=== PATIENT | female | born 1970 | race Caucasian/White ===

== ENCOUNTER 2022-08-26 09:02 | Inpatient (IN) | payer OTHER, MEDICAID ==
[~2022-08-26 09:02] MED LIST: Bupivacaine 0.5% 50 ML MDV ONE; Dexamethasone 4 MG/ML SDV ONE; Dextrose 5%-Lactated Ringers 1,000 ML IV SCH; Glycopyrrolate 0.2 MG/ML 5 ML MDV ONE; Lidocaine 1% with EPINEPHrine 1:100,000 50 ML MDV ONE; Meropenem 500 MG SDV ONE; Naloxone 0.4 MG/ML SDV IV PRN; Neostigmine Methylsulfate 1 MG/ML 5 ML Syringe ONE; Ondansetron 4 MG/2 ML SDV ONE; Propofol 200 MG/20 ML SDV ONE; Rocuronium 50 MG/5 ML Vial ONE; Scopolamine 1.5 MG Transdermal Patch TRDERM SCH; Succinylcholine 200 MG/10 ML MDV ONE; fentaNYL 250 MCG/5 ML SDV ONE
[2022-08-26] MEDS ORDERED: Ketamine 500 MG/5 ML MDV IV SCH (09:15)
[2022-08-26] MEDS ORDERED: Ketamine 18 MG in Sodium Chloride 0.9% 19.82 ML IV SCH (09:15)
[2022-08-26] MEDS ORDERED: Ropivacaine 34 ML, dexAMETHasone 8 MG, EPINEPHrine 0.4 MG, Sodium Chloride 0.9% 43.6 ML NERVRT SCH ×4 (09:15)
[2022-08-26] MEDS ORDERED: Amphetamine/Dextroamphetamine Salts 10 MG Tab PO ONE (09:30)
[2022-08-26 09:31] LABS: HEMATOCRIT 41.5 % (34.3-46.0); HEMOGLOBIN 13.7 g/dL (11.2-15.5); MEAN CORPUSCULAR VOLUME 93.9 fL (81.4-99.0); RED BLOOD CELL COUNT 4.42 M/uL (3.77-5.24); WHITE BLOOD CELL COUNT,WBC 6.3 K/uL (3.2-11.0)
[2022-08-26] MEDS ORDERED: cefOXitin 2 GM in Sodium Chloride 0.9% 50 ML IV ONE (09:45)
[2022-08-26 09:47] LABS: PROTHROMBIN TIME 10.5 sec (9.2-10.6)
[2022-08-26 09:54] LABS: A/G RATIO 1.5 (1.2-2.2); ALANINE AMINOTRANSFERASE,ALT 15 U/L (12-78); ALBUMIN 3.9 g/dL (3.4-5.0); ALKALINE PHOSPHATASE 128 U/L (46-116); ASPARTATE AMNIOTRANSFERASE,AST 26 U/L (15-37); BILIRUBIN TOTAL 0.2 mg/dL (0.2-1.0); BLOOD UREA NITROGEN,BUN 14 mg/dL (7-18); CARBON DIOXIDE,CO2 27 mmol/L (21-32); CHLORIDE,CL 102 mmol/L (100-108); CREATININE 0.9 mg/dL (0.6-1.0); EST CRCL DRUG DOSING (CG) 71.11 mL/min; ESTIMATED GFR 77 mL/min (>60); GLUCOSE RANDOM 100 mg/dL (74-106); MAGNESIUM 2.1 mg/dL (1.8-2.4); PHOSPHORUS 3.2 mg/dL (2.5-4.9); POTASSIUM,K 3.4 mmol/L (3.6-5.2); PROTEIN TOTAL,TP 6.5 g/dL (6.4-8.2); SODIUM,NA 138 mmol/L (140-148)
[2022-08-26 10:01] LABS: ANION GAP 12.4 mmol/L (5.0-14.0)
[2022-08-26] MEDS ORDERED: fentaNYL 250 MCG/5 ML SDV ONE (11:00)
[2022-08-26] MEDS ORDERED: Lactated Ringers 1,000 ML ONE (11:54)
[2022-08-26] MEDS: HYDROmorphone/Normal Saline 6 MG/30 ML PCA Vial IV PRN ×2 (12:22→23:56)
[2022-08-26] MEDS ORDERED: Non-Formulary Medication 1 Each IV ONE (13:29)
[2022-08-26] MEDS ORDERED: Dextrose 5%-Lactated Ringers 1,000 ML IV SCH (14:00)
[2022-08-26] MEDS ORDERED: Cyclobenzaprine 10 MG Tab PO PRN (14:31)
[2022-08-26] MEDS ORDERED: Zolpidem 5 MG Tab PO PRN (14:40)
[2022-08-26] MEDS ORDERED: diphenhydrAMINE 50 MG/ML SDV IVPUSH PRN (14:45)
[2022-08-26] MEDS ORDERED: Acetaminophen 500 MG Tab PO PRN (14:45)
[2022-08-26] MEDS ORDERED: Labetalol 20 MG/4 ML Syringe IVPUSH PRN (14:45)
[2022-08-26] MEDS ORDERED: Metoclopramide 10 MG/2 ML SDV IVPUSH PRN (14:45)
[2022-08-26] MEDS ORDERED: Pantoprazole 40 MG Vial IVPUSH SCH (16:00)
[2022-08-26] MEDS: cefOXitin 2 GM in Sodium Chloride 0.9% 50 ML IV SCH ×2 (16:21→21:52)
[2022-08-26] MEDS: Venlafaxine 75 MG Tab PO SCH ×2 (16:23→21:37)
[2022-08-26] MEDS: Potassium Phosphates 22.5 MMOLE in Sodium Chloride 0.9% 250 ML IV SCH ×2 (17:30→23:40)
[2022-08-26] MEDS: MVI, Adult with Vitamin K 10 ML, Thiamine 200 MG, Zinc/Copper/Manganese/Selenium 1 ML i... IV SCH ×4 (20:26)
[2022-08-26] MEDS: Gabapentin 300 MG Cap PO SCH (21:39)
[2022-08-26] MEDS: Acetaminophen 500 MG Tab PO SCH (21:39)
[2022-08-26] MEDS: traZODone 50 MG Tab PO SCH (21:39)
[2022-08-27] MEDS ORDERED: Iopamidol 612 MG/ML 30 ML SDV PO STA (03:48)
[2022-08-27] MEDS: cefOXitin 2 GM in Sodium Chloride 0.9% 50 ML IV SCH ×3 (04:45→17:25)
[2022-08-27 05:32] LABS: BASOPHILS PERCENT AUTO 0.2 % (0.1-1.3); HEMATOCRIT 37.7 % (34.3-46.0); HEMOGLOBIN 12.3 g/dL (11.2-15.5); IMMATURE GRAN ABSOLUTE AUTO 0.03 K/uL (0.00-0.23); IMMATURE GRAN PERCENT AUTO 0.3 % (0.0-0.7); LYMPHOCYTES ABSOLUTE AUTO 0.96 K/uL (0.8-3.3); LYMPHOCYTES PERCENT AUTO 9.5 % (11.4-47.7); MEAN CORPUSCULAR HEMOGLOBIN 30.8 pg (31.6-35.5); MEAN CORPUSCULAR HGB CONC 32.6 g/dL (31.6-35.5); MEAN CORPUSCULAR VOLUME 94.5 fL (81.4-99.0); MONOCYTES ABSOLUTE AUTO 0.56 K/uL (0.20-0.90); MONOCYTES PERCENT AUTO 5.5 % (3.3-12.6); NEUTROPHILS ABSOLUTE AUTO 8.56 K/uL (1.0-7.6); NEUTROPHILS PERCENT AUTO 84.5 % (40.0-78.1); PLATELET COUNT,PLT 284 K/uL (130-375); RED BLOOD CELL COUNT 3.99 M/uL (3.77-5.24); WHITE BLOOD CELL COUNT,WBC 10.1 K/uL (3.2-11.0)
[2022-08-27 05:39] LABS: BASOPHILS ABSOLUTE AUTO 0.02 K/uL (0.00-0.10)
[2022-08-27] MEDS: Acetaminophen 500 MG Tab PO SCH ×3 (06:06→21:21)
[2022-08-27 06:07] LABS: ALANINE AMINOTRANSFERASE,ALT 282 U/L (12-78); ALBUMIN 3.1 g/dL (3.4-5.0); ALKALINE PHOSPHATASE 148 U/L (46-116); ASPARTATE AMNIOTRANSFERASE,AST 212 U/L (15-37); BILIRUBIN TOTAL 0.3 mg/dL (0.2-1.0); BLOOD UREA NITROGEN,BUN 7 mg/dL (7-18); CALCIUM 8.4 mg/dL (8.5-10.1); CARBON DIOXIDE,CO2 29 mmol/L (21-32); CHLORIDE,CL 103 mmol/L (100-108); CREATININE 0.9 mg/dL (0.6-1.0); EST CRCL DRUG DOSING (CG) 71.11 mL/min; ESTIMATED GFR 77 mL/min (>60); FERRITIN 543 ng/ml (8-388); GLUCOSE RANDOM 114 mg/dL (74-106); MAGNESIUM 1.9 mg/dL (1.8-2.4); PHOSPHORUS 4.7 mg/dL (2.5-4.9); POTASSIUM,K 3.9 mmol/L (3.6-5.2); PROTEIN TOTAL,TP 5.4 g/dL (6.4-8.2); SODIUM,NA 139 mmol/L (140-148)
[2022-08-27 06:08] LABS: A/G RATIO 1.4 (1.2-2.2); ANION GAP 10.9 mmol/L (5.0-14.0)
[2022-08-27] MEDS ORDERED: Ondansetron 4 MG Tab.DIS PO PRN (07:51)
[2022-08-27] MEDS ORDERED: hydrOXYzine HCl 25 MG Tab PO PRN (08:25)
[2022-08-27] MEDS: Venlafaxine 75 MG Tab PO SCH ×2 (08:25→13:02)
[2022-08-27] MEDS: SCOPOLAMINE PATCH CHECK TOP SCH (08:25)
[2022-08-27] MEDS ORDERED: oxyCODONE 5 MG Tab PO PRN (08:25)
[2022-08-27] MEDS: Amphetamine/Dextroamphetamine Salts 10 MG Tab PO SCH ×2 (08:29→13:09)
[2022-08-27] MEDS: Dextrose 5%-Lactated Ringers 1,000 ML IV SCH (08:33)
[2022-08-27] MEDS ORDERED: Zonisamide 50 MG Capsule PO SCH (09:00)
[2022-08-27] MEDS: hydrOXYzine HCL 100 MG/2 ML SDV IM PRN ×2 (13:00→18:49)
[2022-08-27] MEDS: Ondansetron 4 MG/2 ML SDV IVPUSH PRN (13:23)
[2022-08-27] MEDS ORDERED: Scopolamine 1.5 MG Transdermal Patch TRDERM ONE (13:30)
[2022-08-27] MEDS: oxyCODONE 5 MG Tab PO PRN ×2 (15:27→21:30)
[2022-08-27] MEDS: hydrOXYzine HCl 25 MG Tab PO PRN (15:28)
[2022-08-27] MEDS: Pantoprazole 40 MG Tab.CR PO SCH (15:29)
[2022-08-27] MEDS: MVI, Adult with Vitamin K 10 ML, Thiamine 200 MG, Zinc/Copper/Manganese/Selenium 1 ML i... IV SCH ×4 (15:36)
[2022-08-27] MEDS: Gabapentin 300 MG Cap PO SCH (21:22)
[2022-08-27] MEDS: Zonisamide 50 MG Capsule PO SCH (21:23)
[2022-08-27] MEDS: traZODone 50 MG Tab PO SCH (21:23)
[2022-08-28] MEDS: Dextrose 5%-Lactated Ringers 1,000 ML IV SCH ×3 (02:10→20:49)
[2022-08-28] MEDS: Acetaminophen 500 MG Tab PO SCH ×4 (06:04→21:10)
[2022-08-28] MEDS: oxyCODONE 5 MG Tab PO PRN (06:04)
[2022-08-28] MEDS: Venlafaxine 75 MG Tab PO SCH ×2 (07:52→13:32)
[2022-08-28] MEDS: Amphetamine/Dextroamphetamine Salts 10 MG Tab PO SCH ×2 (07:53→13:32)
[2022-08-28] MEDS ORDERED: Naloxone 0.4 MG/ML SDV IV PRN (08:19)
[2022-08-28] MEDS ORDERED: Cyanocobalamin (Vitamin B12) 1,000 MCG/ML SDV IM ONE (09:00)
[2022-08-28] MEDS: Docusate Sodium 100 MG Cap PO SCH ×2 (09:22→20:44)
[2022-08-28] MEDS: Bisacodyl 5 MG Tab PO SCH ×2 (09:22→20:44)
[2022-08-28] MEDS: SCOPOLAMINE PATCH CHECK TOP SCH (09:22)
[2022-08-28] MEDS: HYDROmorphone/Normal Saline 6 MG/30 ML PCA Vial IV PRN (09:24)
[2022-08-28] MEDS: Ondansetron 4 MG/2 ML SDV IVPUSH PRN (09:46)
[2022-08-28] MEDS: Pantoprazole 40 MG Tab.CR PO SCH (17:45)
[2022-08-28] MEDS: Gabapentin 300 MG Cap PO SCH (20:44)
[2022-08-28] MEDS: traZODone 50 MG Tab PO SCH (20:45)
[2022-08-28] MEDS: Zonisamide 50 MG Capsule PO SCH (20:45)
[2022-08-29] MEDS: HYDROmorphone/Normal Saline 6 MG/30 ML PCA Vial IV PRN (04:54)
[2022-08-29] MEDS: Acetaminophen 500 MG Tab PO SCH ×3 (05:00→22:49)
[2022-08-29] MEDS: Dextrose 5%-Lactated Ringers 1,000 ML IV SCH (06:40)
[2022-08-29] MEDS: Amphetamine/Dextroamphetamine Salts 10 MG Tab PO SCH ×2 (07:36→13:38)
[2022-08-29] MEDS: Venlafaxine 75 MG Tab PO SCH ×2 (07:36→13:38)
[2022-08-29] MEDS: Docusate Sodium 100 MG Cap PO SCH ×2 (08:23→21:26)
[2022-08-29] MEDS: Bisacodyl 5 MG Tab PO SCH ×2 (08:23→21:26)
[2022-08-29] MEDS: HYDROmorphone 2 MG Tab PO PRN ×4 (10:37→22:50)
[2022-08-29] MEDS: hydrOXYzine HCl 25 MG Tab PO PRN ×2 (14:30→18:45)
[2022-08-29] MEDS: Pantoprazole 40 MG Tab.CR PO SCH (16:19)
[2022-08-29] MEDS: Gabapentin 300 MG Cap PO SCH (21:27)
[2022-08-29] MEDS: Zonisamide 50 MG Capsule PO SCH (21:29)
[2022-08-29] MEDS: traZODone 50 MG Tab PO SCH (21:29)
[2022-08-30] MEDS: HYDROmorphone 2 MG Tab PO PRN (06:05)
[2022-08-30] MEDS: Acetaminophen 500 MG Tab PO SCH (06:05)
[2022-08-30] MEDS: Amphetamine/Dextroamphetamine Salts 10 MG Tab PO SCH (08:06)
[2022-08-30] MEDS: Venlafaxine 75 MG Tab PO SCH (08:06)
[2022-08-30] MEDS: Docusate Sodium 100 MG Cap PO SCH (08:07)
[2022-08-30] MEDS: Bisacodyl 5 MG Tab PO SCH (08:07)
== END 2022-08-30 08:45 | disposition home or self-care (01) | DRG 327 ==
LOC: JP.SDS 09:02 → JP.MS 13:26
PROVIDERS: ADMIT Surgery; ATTEND Surgery
PROC: 0DB60ZZ Excision of Stomach, Open Approach (ICD-10-PCS; principal; 2022-08-26)
PROC: 0D160Z9 Bypass Stomach to Duodenum, Open Approach (ICD-10-PCS; 2022-08-26)
PROC: 0WUF0JZ Supplement Abdominal Wall with Synthetic Substitute, Open Approach (ICD-10-PCS; 2022-08-26)
PROC: 3E0M05Z Introduction of Adhesion Barrier into Peritoneal Cavity, Open Approach (ICD-10-PCS; 2022-08-26)
DX: K95.89 Other complications of other bariatric procedure (principal); D62 Acute posthemorrhagic anemia; K43.0 Incisional hernia with obstruction, without gangrene; K92.2 Gastrointestinal hemorrhage, unspecified; K52.9 Noninfective gastroenteritis and colitis, unspecified; D75.839 Thrombocytosis, unspecified; E53.8 Deficiency of other specified B group vitamins; K59.00 Constipation, unspecified; S82.832D Other fracture of upper and lower end of left fibula, subsequent encounter for closed fracture with routine healing; Z79.899 Other long term (current) drug therapy; Z93.1 Gastrostomy status; Z87.891 Personal history of nicotine dependence
CPT/HCPCS: 36415; 74240; 74240-26; 80053; 82728; 83735; 84100; 85025; 85027; 85610; 86850; 86870; 86900; 86901; 86902; 86920; 86922; 88302; 88305; 88307; A9270-GY; C9113; J0131; J0171; J0330; J0694; J1100; J1170; J2020; J2185; J2405; J2704; J2710; J2795; J3010; J3410; J3411; J3420; J3490; J7050; J7120; J7121

== ENCOUNTER 2022-09-27 05:21 | Day surgery (SDC) | payer OTHER, MEDICAID ==
[2022-09-27] MEDS ORDERED: Dextrose 5%-Lactated Ringers 1,000 ML IV SCH (06:30)
[2022-09-27] MEDS ORDERED: Lidocaine 1% with EPINEPHrine 1:100,000 50 ML MDV ONE (06:59)
[2022-09-27] MEDS ORDERED: Bupivacaine 0.5% 50 ML MDV ONE (06:59)
[2022-09-27] MEDS ORDERED: fentaNYL 250 MCG/5 ML SDV ONE (07:03)
[2022-09-27] MEDS ORDERED: Dexamethasone 4 MG/ML SDV ONE (07:04)
[2022-09-27] MEDS ORDERED: Glycopyrrolate 0.2 MG/ML 5 ML MDV ONE (07:04)
[2022-09-27] MEDS ORDERED: Propofol 200 MG/20 ML SDV ONE (07:04)
[2022-09-27] MEDS ORDERED: Rocuronium 50 MG/5 ML Vial ONE (07:04)
[2022-09-27] MEDS ORDERED: Ondansetron 4 MG/2 ML SDV ONE (07:04)
[2022-09-27] MEDS ORDERED: Neostigmine Methylsulfate 1 MG/ML 5 ML Syringe ONE (07:04)
[2022-09-27] MEDS ORDERED: ceFAZolin 2 GM in Premix Bag 1 BAG IV ONE (07:55)
[2022-09-27] MEDS ORDERED: ceFAZolin 1 GM Vial ONE (07:57)
[2022-09-27] MEDS ORDERED: Sodium Chloride 0.9% 10 ML ONE (07:57)
[2022-09-27] MEDS ORDERED: Meropenem 500 MG SDV ONE (08:04)
[2022-09-27] MEDS ORDERED: Linezolid 600 MG/300 ML Premix Bag IRR ONE (08:29)
[2022-09-27] MEDS ORDERED: fentaNYL 100 MCG/2 ML SDV ONE (09:04)
[2022-09-27] MEDS ORDERED: HYDROmorphone 2 MG Tab PO PRN (10:06)
== END 2022-09-27 11:18 | disposition home or self-care (01) ==
LOC: JP.SDS 05:21
PROVIDERS: ATTEND Surgery
DX: K43.2 Incisional hernia without obstruction or gangrene (principal); L90.5 Scar conditions and fibrosis of skin; F32.A Depression, unspecified; F41.9 Anxiety disorder, unspecified; D50.9 Iron deficiency anemia, unspecified; L02.211 Cutaneous abscess of abdominal wall; N64.1 Fat necrosis of breast; G89.18 Other acute postprocedural pain; K91.2 Postsurgical malabsorption, not elsewhere classified; Z71.3 Dietary counseling and surveillance; Z79.899 Other long term (current) drug therapy; Z98.84 Bariatric surgery status; Z91.048 Other nonmedicinal substance allergy status
CPT/HCPCS: 13101; 13102; 49595; 88302; A9270; J0131; J0690; J1100; J2020; J2185; J2405; J2704; J2710; J3010; J3490; J7121